=== PATIENT | male | born 1970 | race Caucasian/White ===

== ENCOUNTER → 2019-01-06 08:46 | Outpatient (CLI) | payer OTHER, SELFPAY ==
[2019-01-06 09:26] LABS: Add Manual Diff / Slide Review NO; Basophils Absolute Auto 0 /uL (0-100); Basophils Percent Auto 0.6 % (0-2); Eosinophils Absolute Auto 100 /uL (0-450); Eosinophils Percent Auto 3.1 % (2-4); Hematocrit 43.2 % (41-53); Hemoglobin 14.9 g/dL (13.5-17.5); Lymphocytes Absolute Auto 1700 /uL (1100-4500); Lymphocytes Percent Auto 43.8 % (25-40); Mean Corpuscular HGB Conc 34.4 % (30-36); Mean Corpuscular Hemoglobin 32.1 PG (26-34); Mean Corpuscular Volume 93.3 fL (80-100); Monocytes Absolute Auto 300 /uL (0-900); Monocytes Percent Auto 8.6 % (3-14); Neutrophils Absolute Auto 1700 /uL (1500-7000); Neutrophils Percent Auto 43.9 % (50-75); Platelet Count 172 X10^3/uL (150-400); Red Blood Cell Count 4.64 X10^6/uL (4.5-5.9); Red Cell Distribution Width 12.7 % (11.6-14.8); White Blood Cell Count 3.8 X10^3/uL (4.5-11.0)
[2019-01-06 09:45] LABS: Alanine Aminotransferase 28 IU/L (21-72); Albumin 4.6 g/dL (3.5-5.0); Albumin Globulin Ratio 1.7 (1.0-2.8); Alkaline Phosphatase 59 U/L (38-126); Aspartate Aminotransferase 37 IU/L (17-59); Bilirubin Total 0.8 mg/dL (0.2-1.3); Blood Urea Nitrogen 23 mg/dL (9-20); Calcium 9.9 mg/dL (8.4-10.2); Carbon Dioxide 31 mmol/L (22-32); Chloride 100 mmol/L (98-107); Cholesterol 227 mg/dL (140-199); Estimated Glomerular Filt Rate > 60.0 mL/min (>60); Globulin 2.7 g/dL (1.7-4.1); Glucose 104 mg/dL (70-100); HDL Cholesterol 76 mg/dL (40-60); HEMOLYSIS < 15 (0-50); LDL Cholesterol Calculated 136 mg/dL (<100); Potassium 4.8 mmol/L (3.4-5.1); Sodium 139 mmol/L (137-145); Total Protein 7.3 g/dL (6.3-8.2); Triglycerides 76 mg/dL (35-150)
[2019-01-06 12:12] LABS: TSH w/ Reflex to FT4 1.86 uIU/mL (0.47-4.68)
== END ==
PROVIDERS: Family Medicine; PCP Internal Medicine; Visit Provider Internal Medicine
DX: Z00.00 Encounter for general adult medical examination without abnormal findings (principal); E78.5 Hyperlipidemia, unspecified
CPT/HCPCS: 36415; 80053; 80061; 84443; 85025

== ENCOUNTER → 2020-12-01 10:07 | Outpatient (CLI) | payer OTHER, SELFPAY ==
[2020-12-01] MEDS: COVID-19 VACC, Ad26(JANSSEN)/PF 0.5 ML IM (10:12)
== END ==
PROVIDERS: PCP Internal Medicine; Visit Provider Internal Medicine
DX: Z23 Encounter for immunization (principal)
CPT/HCPCS: 0031A; 91303

== ENCOUNTER → 2022-02-05 10:30 | Outpatient (CLI) | payer OTHER, SELFPAY ==
[2022-02-05 11:08] LABS: COVID19 -Nasal RAPID Negative (Negative)
== END ==
PROVIDERS: PCP Student in an Organized Health Care Education/Training Program; Visit Provider Surgery
DX: Z20.822 Contact with and (suspected) exposure to COVID-19 (principal); Z01.812 Encounter for preprocedural laboratory examination
CPT/HCPCS: 87635; C9803

== ENCOUNTER 2022-02-06 13:31 | Day surgery (SDC) | payer OTHER, SELFPAY ==
[2022-02-06] VITALS (8 sets, daily range): BP systolic 92–117; BP diastolic 49–69; PULSE 52–68; RESP 8–16; TEMP 36.1–36.8; O2SAT 97–99; BMI 21.8
--- NOTE | 2022-02-06 14:04 | PM.HP.1 ---
History of Present Illness History of Present Illness Date Patient Seen: 02/06/22 Time Patient Seen: 14:04 Chief complaint: SDC Narrative: The patient presents for colorectal screening. They have never had any previous examination for such. No personal or family history of colon cancer. On further history denies any recent gastrointestinal symptoms. No nausea, vomiting, abdominal pain, loss of appetite, unexplained weight loss, change in bowel habits, diarrhea, constipation, melena, hematochezia, or bright red blood per rectum. Patient History Medical History Sterilization consult Surgical History Status post laminectomy Family & Social History Family History Father Essential hypertension Mother Rheumatoid arthritis, involving unspecified site, unspecified rheumatoid factor presence Social History: household members spouse Tobacco & Substance use: Smoking Status Never smoker alcohol intake frequency a few times a week Substance Use Type marijuana Meds Home Medications and Allergies Home Medications Medication Instructions Recorded Confirmed Type ibuprofen 800 mg tablet 800 mg PO TIDP PRN Pain, Mild ##0 10/03/17 02/06/22 History Allergies Allergy/AdvReac Type Severity Reaction Status Date / Time No Known Drug Allergies Allergy Verified 02/06/22 13:47 Exam Vital Signs (past 8 hours): - 02/06/22 13:49 Temperature 96.9 F L Pulse Rate 58 L Respiratory Rate 16 Blood Pressure 117/69 Pulse Oximetry 97 Oxygen Delivery Method Room Air Oxygen Delivery Method Room Air Narrative Exam Narrative: General adult male alert oriented no acute distress Chest nonlabored respirations Extremities warm well perfused Assessment & Plan Assessment & Plan narrative: The patient requires colorectal screening and colonoscopy is recommended. Technical details were discussed. Risks, benefits, alternatives explained. Risks including but not limited to myocardial infarction, aspiration, bleeding, pain, missed lesion, incomplete examination, need for further radiographic studies, colonic perforation, and need for major abdominal surgery were discussed. All questions were answered to their satisfaction, and they are in agreement with this plan. Time Spent With Patient Critical Care time: I spent a total of [] minutes of critical care time on this patient's care today; this time is exclusive of procedural time.
[2022-02-06] MEDS: LACTATED RINGERS 1,000 ML 200 ML IV (14:06)
[2022-02-06] MEDS: fentaNYL 250 MCG/5 ML INJ IV (14:32)
[2022-02-06] MEDS: MIDAZOLAM 5 MG/5 ML VIAL IV (14:34)
--- NOTE | 2022-02-06 14:38 | P.OP.COLON_ITS ---
Operative Date/Time/Diagnoses Date of procedure: 02/06/22 Time of procedure: 14:38 Pre-op diagnosis: screening Post-op diagnosis: same Procedure & Clinicians Study performed: Colonoscopy Same procedure as scheduled: Yes Indications: Screening Surgeon: Josue Manzano Procedure Notes Procedure in detail: Medications: Conscious sedation using 8 mg IV midazolam and 200mcg IV of fentanyl The history and physical was performed/updated and the patient is ASA class is 1. The procedure was discussed in detail with the patient. Potential risks complications including infection, bleeding, missed diagnosis, perforation, need for surgery, and were explained. Their questions were answered and informed consent was obtained. Patient was brought to the procedure room and placed standard monitoring equipment. The patient's vital signs were monitored continuously throughout the entire procedure. Prior to starting time-out was performed. The patient was placed in the left lateral recumbent position. Procedural sedation was adminis tered. Examination began with a thorough inspection of the perianal area there was no evidence of fissures, fistulae, external hemorrhoids or cutaneous malignancy. The colonoscopy scope was then placed into the anal canal and was advanced to the cecum, which was identified by the ileocecal valve, the appendiceal orifice and the confluence of the taenia. The scope was then slowly withdrawn examining colon thoroughly in all directions, irrigating it of any residual stool. FINDINGS 1. Normal healthy colon without abnormality The patient tolerated the procedure well. They will be discharged once criteria are met. The prep was of good/excellent quality. The withdrawl time was 6 minutes. The sedation time was 15 minutes. Specimen(s): none sent Complications: none Impression: Normal colonoscopy Post-procedure Recommendations: Colonoscopy in 10 years
--- NOTE | 2022-02-06 15:11 | SUR.PHASEI ---
awoke spontaneously, denies dizziness, HOB elevated, fluids given. States that he had a good nap
== END 2022-02-06 15:27 | disposition home or self-care (01) ==
PROVIDERS: PCP Student in an Organized Health Care Education/Training Program; Referring Provider Surgery; Visit Provider Surgery
PROC: 0DJD8ZZ Inspection of Lower Intestinal Tract, Via Natural or Artificial Opening Endoscopic (ICD-10-PCS; CPT 45378; principal; 2022-02-06 14:30)
DX: Z12.11 Encounter for screening for malignant neoplasm of colon (principal)
CPT/HCPCS: 45378; 99152; J2250; J3010

== ENCOUNTER → 2023-10-07 07:33 | Outpatient (CLI) | payer OTHER, SELFPAY ==
--- NOTE | 2023-10-07 07:35 | DI.US.S_ITS ---
PROCEDURE: US CAROTID DOPPLER BI INDICATIONS: Mixed hyperlipidemia TECHNIQUE: Color and pulse Doppler interrogation was performed of both carotid systems, with image documentation and velocity measurements. COMPARISON: None. FINDINGS: Stenosis calculations are based on SRU (Society of Radiologists in Ultrasound) criteria. Right side: Brachial blood pressure: 129 mm Hg. Common carotid artery peak systolic velocity: 122 cm/sec. Internal carotid artery peak systolic velocity: 63 cm/sec. Internal carotid artery end diastolic velocity: 23 cm/sec. External carotid artery peak systolic velocity: 67 cm/sec. ICA/CCA peak systolic ratio: 0.5 . Parks scale imaging description: No significant atherosclerotic plaque. Percent internal carotid artery stenosis: Normal . Vertebral artery: Flow direction is antegrade. Left side: Brachial blood pressure: 128 mm Hg. Common carotid artery peak systolic velocity: 132 cm/sec. Internal carotid artery peak systolic velocity: 68 cm/sec. Internal carotid artery end diastolic velocity: 30 cm/sec. External carotid artery peak systolic velocity: 60 cm/sec. ICA/CCA peak systolic ratio: 0.5. Parks scale imaging description: No significant atherosclerotic plaque Percent internal carotid artery stenosis: Normal . Vertebral artery: Flow direction is antegrade. IMPRESSION: Normal bilateral internal carotid arteries with no evidence of a hemodynamically significant stenosis. Dictated by: Aide Durham M.D. on 10/07/2023 at 14:20 Approved by: Aide Durham M.D. on 10/07/2023 at 14:24
== END ==
PROVIDERS: PCP Student in an Organized Health Care Education/Training Program; Referring Provider Student in an Organized Health Care Education/Training Program; Visit Provider Student in an Organized Health Care Education/Training Program
DX: E78.2 Mixed hyperlipidemia (principal)
CPT/HCPCS: 93880

== ENCOUNTER → 2024-04-08 07:43 | Outpatient (CLI) | payer OTHER, SELFPAY ==
--- NOTE | 2024-04-08 17:12 | DI.NM.S_ITS ---
DATE OF SERVICE: 04/08/2024 PROCEDURE: Exercise stress test. INDICATIONS: Coronary artery calcification with underlying dyslipidemia. CARDIAC STRESS: The patient underwent exercise stress test under the supervision of an attending staff. He walked on Juan protocol for 18 minutes and achieved maximum heart rate of 166, which was 99% of target heart rate. Normal blood pressure response. Peak blood pressure 168/88 mmHg. LISSET -69%. 18.4 METS of workload. Baseline rhythm sinus. During stress, no convincing ischemic changes seen. No significant arrhythmias. No anginal symptoms. CONCLUSION: Exercise stress test is negative for inducible ischemia. Excellent exercise tolerance. Walked on Juan protocol for 18 minutes. Achieved 18.4 METS of workload and LISSET -69%. Normal hemodynamic response. No significant arrhythmias. No anginal symptoms. Normal recovery. Overall, low-risk exercise stress test. Suhail Liu - JOSE ROBERTO/meg/AY doc#: [id number]/job#: [id number] dd: 04/08/2024 16:44:00 dt: 04/08/2024 16:50:00 DICTATING /COPIES TO: Lashwan Radford MD COPIES MNE: ROMARIO;
== END ==
LOC: DI 07:44
PROVIDERS: PCP Student in an Organized Health Care Education/Training Program; Referring Provider Internal Medicine Cardiovascular Disease; Visit Provider Internal Medicine Cardiovascular Disease
DX: R07.9 Chest pain, unspecified (principal); I25.10 Atherosclerotic heart disease of native coronary artery without angina pectoris; E78.5 Hyperlipidemia, unspecified
CPT/HCPCS: 93017

== ENCOUNTER → 2024-05-25 09:15 | Outpatient (CLI) | payer OTHER, SELFPAY ==
--- NOTE | 2024-05-25 09:20 | DI.ECHO.S_ITS ---
[facility]---------+ [facility] : : [address] : : [place] : : [id number] : : Phone: [phone] Echocardiogram Report + + :Name: JAUN KOCH Study Date: 05/25/2024 Height: 70 in : :[facility] ReadingLocation: Weight: 148 lb : : Gender: Male BSA: 1.8 m2 : :: 1970 Age: 53 yrs BP: 121/76 mmHg: :Reason For Study: CHEST PAIN : :Ordering Physician: NAYE, : :DANII Bragg Performed By: Lauryn Chua : :Referring: DANII MUSA : + + Interpretation Summary The patient was in sinus bradycardia with heart rates between 50-60 bpm during the exam. The ejection fraction is estimated to be 50-55%. Diastolic parameters suggest probable normal left ventricular diastolic function and normal filling pressures. The right ventricle is normal in size and function. There is mild mitral regurgitation. Pulmonary artery pressures cannot be estimated because of the lack of a measurable TR jet velocity but the IVC suggests a CVP of around 3 mmHg. Procedure: A two-dimensional transthoracic echocardiogram with color flow and Doppler was performed. The study quality was technically adequate. There is no prior echocardiogram noted for this patient. The patient was in sinus bradycardia with heart rates between 50-60 bpm during the exam. Left Ventricle: The left ventricle is normal in size and wall thickness. The ejection fraction is estimated to be 50-55%. Diastolic parameters suggest probable normal left ventricular diastolic function and normal filling pressures. Right Ventricle: The right ventricle is normal in size and function. Atria: The left atrial size is normal. Right atrial size is normal. There is no Doppler evidence for an interatrial shunt. Mitral Valve: The mitral valve is normal. There is mild mitral regurgitation. Aortic Valve: The aortic valve is trileaflet. The aortic valve opens well. There is no aortic valve stenosis. No aortic regurgitation is present. Tricuspid Valve: The tricuspid valve is normal in structure and function. There is mild tricuspid regurgitation. Pulmonary artery pressures cannot be estimated because of the lack of a measurable TR jet velocity but the IVC suggests a CVP of around 3 mmHg. Pulmonic Valve: The pulmonic valve is not well seen, but is grossly normal. There is no pulmonic valvular regurgitation. Great Vessels: The aortic root is normal size. The dimensions of the ascending aorta are normal. The IVC is of normal diameter and collapses greater than 50% with a sniff. This suggests a low right atrial pressure of 3 mm Hg. Pericardium/ Pleura There is no pericardial effusion. There is no pleural effusion. MMode/2D Measurements & Calculations LVIDd: 4.5 cm LVOT diam: 2.0 cm LVIDs: 3.1 cm Ao root diam: 2.8 cm FS: 31.3 % asc Aorta Diam: 2.7 cm EPSS: 0.62 cm Ao Arch Diam (Prox Trans): 2.5 cm IVSd: 0.63 cm LVPWd: 0.74 cm LV dotson. diameter/BSA (cm/m^2): 2.5 LV sys. diameter/BSA (cm/m^2): 1.7 LA A2 area: 16.5 cm2 RA long axis: 4.3 cm LA A4 area: 12.3 cm2 RA area: 12.3 cm2 LA length (vol): 4.1 cm RA vol: 29.8 ml LA vol: 42.4 ml RA : 16.2 ml/m2 LA vol index: 23.1 ml/m2 IVC diam: 2.1 cm RVD1 (basal): 3.8 cm RVD2 (mid): 3.1 cm TAPSE: 2.8 cm Doppler Measurements & Calculations Ao V2 max: 131.5 cm/sec LVOT Max Sandoval: 93.2 cm/sec Ao V2 mean: 91.2 cm/sec LV V1 max P.5 mmHg Ao max P.9 mmHg LV V1 VTI: 20.0 cm Ao mean P.7 mmHg GUERLINE(I,D): 2.2 cm2 Ao V2 VTI: 29.5 cm GUERLINE(V,D): 2.3 cm2 sev ratio: 0.68 GUERLINE indexed to BSA (cm^2/m^2): 1.2 MV E max sandoval: 64.6 cm/sec TR max sandoval: 203.2 cm/sec MV A max sandoval: 44.8 cm/sec TR max P.5 mmHg MV E/A: 1.4 PA V2 max: 76.6 cm/sec Med Peak E' Sandoval: 11.1 cm/sec PA V2 mean: 55.5 cm/sec E/E' med: 5.8 PA mean P.3 mmHg Lat Peak E' Sandoval: 16.1 cm/sec PA pr(Accel): 36.2 mmHg E/E' lat: 4.0 E/e' average: 4.9 MV dec time: 0.23 sec SVLVOT): 65.5 ml Reading Physician:04:46 PM
[2024-05-27 13:12] LABS: Cholesterol, Total 217 mg/dL (100-199); HDL-Cholesterol 76 mg/dL (>39); HDL-Particle (Total) 44.6 umol/L (>=30.5); LDL Particle 1456 nmol/L (<1000); LDL Size 20.7 nm (>20.5); LDL-Cholsterol 132 mg/dL (0-99); LP-IR Score 31 (<=45); Small LDL- Particle 533 nmol/L (<=527); Triglycerides 51 mg/dL (0-149)
== END ==
PROVIDERS: PCP Student in an Organized Health Care Education/Training Program; Referring Provider Internal Medicine Cardiovascular Disease; Visit Provider Internal Medicine Cardiovascular Disease
DX: R07.9 Chest pain, unspecified (principal); E78.5 Hyperlipidemia, unspecified; I08.1 Rheumatic disorders of both mitral and tricuspid valves
CPT/HCPCS: 36415; 80061; 83704; 93306

== ENCOUNTER → 2024-09-28 13:32 | Outpatient (CLI) | payer BC, SELFPAY ==
--- NOTE | 2024-09-28 | DI.US.S_ITS ---
PROCEDURE: US SOFT TISSUE HEAD AND NECK INDICATIONS: RT SIDE LUMP NECK, EVAL LYMPH NODES TECHNIQUE: Real-time scanning was performed of the neck region of interest, with image documentation. COMPARISON: None. FINDINGS: Right parotid and submandibular glands are within normal limits. Adjacent lymph nodes are present, not enlarged by size criteria. IMPRESSION: Normal appearing lymph nodes. Dictated by: Autumn Phillips M.D. on 09/28/2024 at 20:05 Approved by: Autumn Phillips M.D. on 09/28/2024 at 20:06
== END ==
LOC: US 13:34
PROVIDERS: PCP Student in an Organized Health Care Education/Training Program; Referring Provider Physician Assistant; Visit Provider Physician Assistant
DX: R22.1 Localized swelling, mass and lump, neck (principal)
CPT/HCPCS: 76536

== ENCOUNTER → 2024-10-08 11:08 | Outpatient (CLI) | payer OTHER, SELFPAY ==
--- NOTE | 2024-10-08 11:10 | DI.CT.S_ITS ---
PROCEDURE: CT SOFT TISSUE NECK W CON INDICATIONS: CERVICAL LYMPADENOPATHY TECHNIQUE: After the administration of intravenous contrast, 3.0 mm axial sections acquired from the sella to the aortic arch. Additional oblique axial 3.0 mm sections acquired through the pharynx. 3 mm thick coronal and sagittal reformats were generated. For radiation dose reduction, the following was used: automated exposure control. COMPARISON: [facility], SOFT TISSUE HEAD AND NECK, 09/28/2024, 13:43. FINDINGS: Image quality: Excellent. Lymph nodes: No enlarged lymph nodes seen throughout the neck. Vessels: Visualized vasculature appears patent. Neck spaces: The oropharynx, nasopharynx, and pharynx demonstrate no mucosal lesions. The vocal cords, false vocal cords, pyriform sinuses, epiglottis, vallecula, and tongue base all appear normal. Extramucosal spaces appear unremarkable. Glands: The parotid and submandibular glands appear normal. Thyroid gland demonstrates no significant abnormality. Miscellaneous: Visualized brain and orbits appear normal. Lung apices appear clear. Superficial soft tissues appear normal. Bones: No suspicious bony lesions. Small right maxillary sinus mucous retention cyst. Visualized sinuses and mastoids otherwise appear unremarkable. Focal degenerative changes at C6-C7. IMPRESSION: No enlarged lymph nodes or masses are identified within the neck. Dictated by: Axel Cornejo M.D. on 10/08/2024 at 13:28 Approved by: Axel Cornejo M.D. on 10/08/2024 at 13:32
== END ==
PROVIDERS: PCP Family Medicine; Referring Provider Student in an Organized Health Care Education/Training Program; Visit Provider Student in an Organized Health Care Education/Training Program
DX: R59.0 Localized enlarged lymph nodes (principal)
CPT/HCPCS: 70491; Q9967

== ENCOUNTER 2025-07-05 07:55 | Emergency (ER) | payer OTHER, SELFPAY ==
[2025-07-05 08:00] VITALS: BP 139/90; PULSE 52; RESP 16; TEMP 36.1; O2SAT 98; BMI 21.5
[2025-07-05 08:27] LABS: Add Manual Diff / Slide Review NO; Hematocrit 43.8 % (41-53); Hemoglobin 15.4 g/dL (13.5-17.5); Lymphocytes Absolute Auto 1400 /uL (1100-4500); Mean Corpuscular HGB Conc 35.1 % (30-36); Mean Corpuscular Hemoglobin 32.6 PG (26-34); Mean Corpuscular Volume 92.9 fL (80-100); Platelet Count 182 X10^3/uL (150-400)
[2025-07-05 08:35] LABS: Alanine Aminotransferase 28 IU/L (<50); Albumin 4.6 g/dL (3.5-5.0); Albumin Globulin Ratio 1.6 (1.0-2.8); Alkaline Phosphatase 76 U/L (38-126); Blood Urea Nitrogen 18 mg/dL (9-20); Calcium 9.3 mg/dL (8.4-10.2); Carbon Dioxide 22 mmol/L (22-32); Chloride 106 mmol/L (98-107); Estimated Glomerular Filt Rate > 60 mL/min (>60); Globulin 2.9 g/dL (1.7-4.1); Glucose 125 mg/dL (70-99); HEMOLYSIS < 15 (0-50); Lipase 102 U/L (23-300); Potassium 4.6 mmol/L (3.4-5.1); Sodium 138 mmol/L (137-145); Total Protein 7.5 g/dL (6.3-8.2)
--- NOTE | 2025-07-05 08:40 | DI.CT.S_ITS ---
PROCEDURE: CT KIDNEY URETER BLADDER (KUB)
--- NOTE | 2025-07-05 08:41 | ED_ITS ---
HPI - Back Pain/Injury
--- NOTE | 2025-07-05 08:41 | ED.BACK ---
HPI - Back Pain/Injury General Chief Complaint: Back Pain/Injury Stated Complaint: Lower back pain radiating to left side Time Seen by Provider: 07/05/25 08:28 Source: patient History of Present Illness HPI Narrative: 54 years old male without comorbidities came in today complaining of low back pain, left flank pain since 1 week and got worse this morning at 6:00 a.m. without nausea vomiting, chest pain, shortness of breath, fever, diarrhea, constipation, urine problem, injury, heavy lifting, heavy exercise. Related Data Home Medications ?Medication ?Instructions ?Recorded ?Confirmed ibuprofen 800 mg tablet 800 mg PO TIDP PRN Pain, Mild ##0 10/03/17 02/06/22 Previous Rx's ?Medication ?Instructions ?Recorded cyclobenzaprine 10 mg tablet 10 mg PO TID #15 tabs 07/05/25 oxycodone 5 mg capsule 5 mg PO Q6H PRN pain #8 caps 07/05/25 Allergies Allergy/AdvReac Type Severity Reaction Status Date / Time No Known Drug Allergies Allergy Verified 07/05/25 08:01 Review of Systems Review of Systems Narrative: complaining of low back pain, left flank pain since 1 week and got worse this morning at 6:00 a.m. Negative for nausea vomiting, chest pain, shortness of breath, fever, diarrhea, constipation, urine problem, injury, heavy lifting, heavy exercise. Patient History Medical History (Updated 07/05/25 @ 14:43 by Sadia Keene MD) Hematospermia Sterilization consult Surgical History Status post laminectomy Family History Father Essential hypertension Mother Rheumatoid arthritis, involving unspecified site, unspecified rheumatoid factor presence Social History household members: spouse Smoking Status: Never smoker Smoking Status: Never smoker alcohol intake frequency: a few times a week Exam Narrative Exam Narrative: GENERAL: Alert awake with my distress. HEAD: Atraumatic. Normocephalic. NECK: Trachea midline. Non tender CARDIOVASCULAR: Regular rate and rhythm without murmurs, gallops, or rubs. RESPIRATORY: Clear to auscultation. Breath sounds equal bilaterally. No wheezes, rales, or rhonchi. GASTROINTESTINAL: Abdomen soft, non-tender, nondistended. EXTREMITIES: No edema or joint tenderness. BACK: No Tenderness on palpation of paraspinal muscle lumbar region bilaterally. No midline lumbar spine tenderness on palpation. NEURO: AOx3. Equal sensation and strength in both legs. SKIN: No rash or erythema of visible areas Initial Vital Signs Initial Vital Signs: Vital Signs Temperature 97.0 F L 07/05/25 08:00 Pulse Rate 52 L 07/05/25 08:00 Respiratory Rate 16 07/05/25 08:00 Blood Pressure 139/90 07/05/25 08:00 Pulse Oximetry 98 07/05/25 08:00 Oxygen Delivery Method Room Air 07/05/25 08:00 Course Orders Ordered: Discontinued Medications Hydromorphone HCl (Hydromorphone Hcl 0.5 Mg/0.5 Ml Syringe) 0.5 mg IV NOW ONE Stop: 07/05/25 08:41 Last Admin: 07/05/25 08:51 Dose: 0.5 mg Documented By: NIECY Hydromorphone HCl (Hydromorphone Hcl 0.5 Mg/0.5 Ml Syringe) 0.5 mg IV NOW ONE Stop: 07/05/25 10:45 Last Admin: 07/05/25 10:47 Dose: 0.5 mg Documented By: LEORA Hydromorphone HCl (Hydromorphone 1 Mg/Ml Syringe) 1 mg IV NOW ONE Stop: 07/05/25 14:45 Last Admin: 07/05/25 14:47 Dose: Not Given Documented By: RB Sodium Chloride (Normal Saline 0.9%) 500 mls @ 1,000 mls/hr IV BOLUS ONE Stop: 07/05/25 09:09 Last Infusion: 07/05/25 09:54 Dose: Infused Documented By: Admin: 07/05/25 08:52 Dose: 1,000 mls/hr Documented By: NIECY Ondansetron HCl (Ondansetron 4 Mg/2 Ml Inj) 4 mg IV NOW PRN PRN Reason: Nausea And Vomiting Last Admin: 07/05/25 08:51 Dose: 4 mg Documented By: NIECY Ondansetron HCl (Ondansetron 4 Mg Odt) 4 mg PO NOW PRN PRN Reason: Nausea And Vomiting Oxycodone HCl (Oxycodone Ir 5 Mg Tablet) 5 mg PO NOW ONE Stop: 07/05/25 14:48 Last Admin: 07/05/25 14:52 Dose: 5 mg Documented By: GERARDO Vital Signs Vital signs: Vital Signs - 8 hr 07/05/25 08:00 07/05/25 10:52 07/05/25 14:08 Temperature 97.0 F L Pulse Rate 52 L 52 L 60 Respiratory Rate 16 12 14 Blood Pressure 139/90 117/68 131/79 Pulse Oximetry 98 99 97 Oxygen Delivery Method Room Air Room Air Room Air MDM - Back Pain/Injury Lab Data 07/05/25 08:16 07/05/25 08:16 Labs: Lab Results 07/05/25 Range/Units 08:16 WBC 3.7 L (4.5-11.0) X10^3/uL RBC 4.72 (4.5-5.9) X10^6/uL Hgb 15.4 (13.5-17.5) g/dL Hct 43.8 (41-53) % MCV 92.9 (80-100) fL MCH 32.6 (26-34) PG MCHC 35.1 (30-36) % RDW 11.9 (11.6-14.8) % Plt Count 182 (150-400) X10^3/uL Neut % (Auto) 50.6 (50-75) % Lymph % (Auto) 39.1 (25-40) % [place] % (Auto) 7.5 (3-14) % Eos % (Auto) 2.2 (2-4) % Baso % (Auto) 0.6 (0-2) % Neut # (Auto) 1900 (5145-2650) /uL Lymph # (Auto) 1400 (8614-8576) /uL [place] # (Auto) 300 (0-900) /uL Eos # (Auto) 100 (0-450) /uL Baso # (Auto) 0 (0-100) /uL Sodium 138 (137-145) mmol/L Potassium 4.6 (3.4-5.1) mmol/L Chloride 106 (98-107) mmol/L Carbon Dioxide 22 (22-32) mmol/L BUN 18 (9-20) mg/dL Creatinine 0.91 (0.66-1.25) mg/dL Estimated GFR > 60 (>60) mL/min BUN/Creatinine Ratio 19.8 (6-22) Glucose 125 H (70-99) mg/dL Calcium 9.3 (8.4-10.2) mg/dL Total Bilirubin 0.5 (0.2-1.3) mg/dL AST 37 (17-59) IU/L ALT 28 (<50) IU/L Alkaline Phosphatase 76 (38-126) U/L Total Protein 7.5 (6.3-8.2) g/dL Albumin 4.6 (3.5-5.0) g/dL Globulin 2.9 (1.7-4.1) g/dL Albumin/Globulin Ratio 1.6 (1.0-2.8) Lipase 102 (23-300) U/L Urine Dip Bedside Urine Glucose Negative Bedside Urine Bilirubin - Negative Bedside Urine Ketone - Negative Urine Specific [place] 1.015 Bedside Urine Occult Blood - Negative Bedside Urine pH 7.0 Bedside Urine Protein - Negative Bedside Urine Urobilinogen - Negative Bedside Urine Nitrite - Negative Bedside Urine Leukocytes - Negative Esterase Imaging Data CT scan - abdomen/pelvis: Radiologist's Impression: PROCEDURE: CT KIDNEY URETER BLADDER (KUB) INDICATIONS: Left flank pain TECHNIQUE: CT of the abdomen and pelvis was obtained without intravenous contrast. Coronal and sagittal reformats were performed. For radiation dose reduction, the following was used: automated exposure control, adjustment of mA and/or kV according to patient size. COMPARISON: None. FINDINGS: Image quality: Diagnostic. Lower Chest: No significant findings. ABDOMEN: Liver: No contour-deforming mass. Gallbladder: No radiopaque gallstones or wall thickening. Biliary ducts: No biliary dilation. Pancreas: No ductal dilation. Spleen: Size is within normal limits. Adrenal Glands: No adrenal nodules. Kidneys and Ureters: No hydronephrosis. No contour-deforming mass. Stomach and Bowel: Normal colonic caliber, without significant wall thickening. Normal appendix. Peritoneum: No abnormal intraperitoneal fluid. No free air. Ventral Wall: No significant hernia. Abdominal Nodes: No retroperitoneal or mesenteric adenopathy by size criteria. Vessels: Aorta and inferior vena cava are normal in size. PELVIS: Pelvic Organs: Unremarkable. Bladder: Unremarkable. Pelvic Nodes: No enlarged lymph nodes. Miscellaneous: No inguinal hernias are seen. Bones: No aggressive osseous abnormality. IMPRESSION: Negative examination. Dictated by: Mart Lindsey M.D. on 07/05/2025 at 9:14 Approved by: Mart Lindsey M.D. on 07/05/2025 at 9:21 [facility] Narrative Medical decision making narrative: 54 years old male without comorbidities came in today complaining of low back pain, left flank pain since 1 week and got worse this morning at 6:00 a.m. without nausea vomiting, chest pain, shortness of breath, fever, diarrhea, constipation, urine problem, injury, heavy lifting, heavy exercise. His CV exam, lung exam, abdominal exam were normal. He is alert oriented x4 in our ED. His neuro exam was intact without focal deficit. Normal sensation and strength in both legs. No midline C-spine, thoracolumbar spine tenderness on palpation. CBC showed WBC 3.7 consistent with the baseline otherwise normal CBC. His CMP was normal. His lipase was normal. CT scan abdomen and pelvis showed no acute finding. He was given Dilaudid, normal saline, Zofran in the ED. he was sent home with Flexeril, oxycodone. He will drink plenty of fluid and follow up his PCP outpatient. Return to the ED precaution was given. Discharge Plan Departure Patient Disposition: Home Clinical Impression: Low back pain Qualifiers: Chronicity: acute Back pain laterality: bilateral Sciatica presence: without sciatica Qualified Code(s): M54.50 - Low back pain, unspecified Instructions: DI for Low Back Pain Activity Restrictions/Additional Instructions: Please come back to the emergency room if any worsening symptoms including but not limited to fever, nausea vomiting, abdominal pain, numbness weakness on your leg, bowel or bladder incontinence or retention. Please continue with Tylenol as needed as well as Aleve outpatient. Please drink plenty of fluid. Prescriptions: New oxycodone 5 mg capsule 5 mg PO Q6H PRN (Reason: pain) Qty: 8 0RF cyclobenzaprine 10 mg tablet 10 mg PO TID Qty: 15 0RF No Action ibuprofen 800 MG tablet 800 mg PO TIDP PRN (Reason: Pain, Mild) Qty: 0 Referrals: Shamar De Jesus MD [Primary Care Provider, Family Practice] Stand Alone Forms: Patient Portal/API
[2025-07-05] MEDS: ONDANSETRON 4 MG/2 ML INJ IV (08:51)
[2025-07-05] MEDS: SODIUM CHLORIDE 0.9% 500 ML 1000 ML IV (08:52)
[2025-07-05 10:52] VITALS: BP 117/68; PULSE 52; RESP 12; O2SAT 99
[2025-07-05 14:08] VITALS: BP 131/79; PULSE 60; RESP 14; O2SAT 97
== END 2025-07-05 14:56 | disposition home or self-care (01) ==
PROVIDERS: Emergency Provider Emergency Medicine; PCP Family Medicine
DX: M54.50 Low back pain, unspecified (principal); R10.A2 Flank pain, left side
CPT/HCPCS: 74176; 80053; 81003; 83690; 85025; 96361; 96374; 96375; 96376; 99284; J1171; J2405; J7040